=== PATIENT | male | born 1985 | race Caucasian/White ===

== ENCOUNTER 2019-11-26 09:14 | Emergency (ER) | payer OTHER, SELFPAY ==
[2019-11-26] VITALS (9 sets, daily range): BP systolic 127–162; BP diastolic 79–94; PULSE 76–102; RESP 12–28; TEMP 37.1; O2SAT 95–100; BMI 29.6
--- NOTE | 2019-11-26 09:24 | DI.CT.S_ITS ---
PROCEDURE: CT ABDOMEN PELVIS WO CON INDICATIONS: poss kidney stone, pain right groin TECHNIQUE: Noncontrast 5 mm thick sections acquired from the diaphragms to the symphysis. 5 mm thick coronal and sagittal reformats were then performed. For radiation dose reduction, the following was used: automated exposure control, adjustment of mA and/or kV according to patient size. COMPARISON: None. FINDINGS: Image quality: Diagnostic. Lung bases: Lung bases are clear. Heart size is normal. Urinary system: Both kidneys are normal in size. There is a 3 mm nonobstructing inferior right renal calculus. No additional renal calculi are appreciated bilaterally. Within the mid aspect of the right ureter, there is at least a partially obstructing moderate-sized calculus measuring 5 x 6 x 7 mm (image 54, series 2). No additional ureteral calculi are evident. There is moderate right-sided hydronephrosis and proximal hydroureter. No left-sided hydronephrosis is evident. No definite renal lesions are appreciated. Please note that evaluation of the kidneys for renal lesions is not adequate without contrast. The urinary bladder is unremarkable. No bladder calculi are identified. A few coarse calcifications of the prostate gland are incidentally noted. Other solid organs: The liver is diffusely hypodense when compared to the spleen. There likely are areas of sparing within the region of the gallbladder fossa. Small foci of increased density are evident along the dependent aspect of the gallbladder. No intrahepatic or extrahepatic biliary dilatation is appreciated. The spleen, adrenals, and pancreas appear to be within normal limits. Peritoneum and bowel: Unenhanced bowel loops demonstrate normal wall thickness and caliber. No free fluid or air. No loculated fluid collections are appreciated. The appendix is well-visualized and normal. Nodes and vessels: No retroperitoneal or mesenteric adenopathy by size criteria. Aorta and inferior vena cava are normal in caliber. Other pelvic soft tissues: No free pelvic fluid. No inguinal hernias or adenopathy. Bones: No suspicious bony lesions. No vertebral body compression fractures. IMPRESSION: 1. Moderate-sized (7 mm) at least partially obstructing mid right ureteral calculus with corresponding moderate hydronephrosis. 2. Nonobstructing small inferior right renal calculus. 3. Possible cholelithiasis. 4. Hepatic steatosis. Dictated by: Hitesh Mott M.D. on 11/26/2019 at 9:37 Approved by: Hitesh Mott M.D. on 11/26/2019 at 9:42
--- NOTE | 2019-11-26 09:48 | ED_ITS ---
HPI - Male Genitourinary General Chief complaint: Urogenital-Male Stated complaint: Kidney stones Time Seen by Provider: 11/26/19 09:39 Source: patient Mode of arrival: Ambulatory Limitations: no limitations History of Present Illness HPI Narrative: CC: Right flank pain HPI: The patient is a 34-year-old male who developed severe right flank and abdominal pain at approximately 4:00 a.m. in the morning. The pain and discomfort is 7 to 8/10 in intensity. The pain has been everything from a dull achy crampy discomfort is sharp and stabbing. He has had no fever but has had profuse sweats and chills. He denies any fall or injury. He has a past history of kidney stones which feels identical at this time. His last stone was 3 years ago. [facility] who administered Toradol and fentanyl for his pain and discomfort. The patient denies a history of asthma hypertension diabetes mellitus. The patient does not smoke cigarettes does drink alcohol socially and does use marijuana marijuana products. He he works as a director of business development. Related Data Allergies Allergy/AdvReac Type Severity Reaction Status Date / Time droperidol Allergy Unknown Verified 11/26/19 09:23 metoclopramide [From Reglan] Allergy Unknown Verified 11/26/19 09:23 prochlorperazine Allergy Unknown Verified 11/26/19 09:23 [From Compazine] Review of Systems Review of Systems Narrative: REVIEW OF SYSTEMS: CONSTITUTIONAL: The patient denies any fever but complains of chills and sweats. NEUROLOGICAL: He denies any headache abnormal behavior numbness tingling anesthesia is paresis or paralysis. EENT: He has had no sore throat or difficulty in swallowing. CARDIO-PULMONARY: He has had no chest pain cough shortness of breath. GASTROINTESTINAL: He has right-sided flank pain as previously described with out melena hematochezia. He has had nausea and vomiting. GENITAL URINARY: He has a past history of kidney stones denies any hematuria or urinary urgency or frequency. MUSCULOSKELETAL/ RHEUMATOLOGICAL: Complains of right-sided flank and back pain similar to his previous kidney stones. Patient History Medical History Kidney stone (Acute) Social History Smoking Status: Never smoker Smoking Status: Never smoker alcohol intake frequency: 0-2 drinks per day Substance Use Type: does not use Exam Narrative Exam Narrative: PHYSICAL EXAM: CONSTITUTIONAL: Awake, Alert, Oriented, Coherent, Cooperative in moderate distress. HEAD: AT/NC EENT: PERRL, FROM of eyes, no discharge. NOSE:No epistaxis or nasal drainage MOUTH: Wearing a mask. NECK: Supple, no obvious JVD, Trachea is midline without stridor, no palpable LN. THORAX: No deformity, retractions, chest wall tenderness. LUNGS: Clear, symmetrical breath sounds without respiratory distress. HEART: Normal heart tones, regular rhythm and rate without murmur. ABDOMEN: Soft, non-tender, normal bowel sounds without guarding, rebound, rigidity or palpable mass. LYMPHATIC: no palpable lymph nodes or spleen. EXTREMITIES: No edema, deformity, tenderness or cyanosis. SKIN: No rash, bruising, petechiae or purpura. NEURO: Awake, alert, oriented, conversive, cranial nerves II-XII are symmetrical , moves all 4 extremities and is ambulatory. Initial Vital Signs Initial Vital Signs: Vital Signs Temperature 98.8 F 11/26/19 09:15 Pulse Rate 86 11/26/19 09:15 Respiratory Rate 28 H 11/26/19 09:15 Blood Pressure 133/79 11/26/19 09:15 Pulse Oximetry 100 11/26/19 09:15 Course Course Course Narrative: 0956: A CT of the patient's abdomen has been ordered. The patient is being evaluated for possible kidney stone with a presentation of right flank pain. He has been administered morphine sulfate 4 mg IV push for his pain and discomfort. 1059: Noncontrast CT scan of the patient's abdomen and pelvis revealed: 1. Moderate sized open parents 7 mm close parent at least partially obstructing mid right ureteral calculus with corresponding moderate hydronephrosis. 2. Nonobstructing small inferior right renal calculus. 3. Possible cholelithiasis 4. Hepatic steatosis. Per the automatic equipment technician the patient does have gallstones. There is no gallbladder wall thickening.. 1208: The patient's pain and discomfort after to the Dilaudid is I 2 to 3/10 has not completely resolved. The patient may need a ureteral stent to relieve his pain and discomfort. We will call Dr. Amaya to discuss the patient for a possible ureteral stent. 12:39: I discussed the patient with Dr. Amaya. He is physically not avail able to see the patient until Thursday. He states that the patient will definitely have difficulty in passing a stone that size when aid it appears to be in the mid ureter with hydronephrosis.. 1243: The patient was informed that Dr. Amaya is not available. The patient is receptive to being transferred to the [facility] if necessary for stenting. The urologist on-call is from who has been paged. 1400: At this time we are waiting for the transfer center to call with an [facility] and room to transfer the patient. Earlier I discussed the options with the patient. He does not feel that he would pass the stone in is afraid to go home and that he would develop worsening pain and discomfort. He had elected to be transferred to be Urology Service. I discussed the patient with Dr. Connors, Urology, who accepted the patient being transferred to her service. Orders Ordered: ED Orders 11/26/19 09:24 CT abdomen pelvis wo con Stat 11/26/19 09:45 Basic Metabolic Panel Stat Complete Blood Count AUTO DIFF Stat 11/26/19 10:34 Urine Microscopic Stat 11/26/19 11:01 US abdomen limited Stat Discontinued Medications Hydromorphone HCl (Dilaudid) 1 mg IV NOW ONE Stop: 11/26/19 11:20 Last Admin: 11/26/19 11:28 Dose: 1 mg Documented by: AUSTIN Hydromorphone HCl (Dilaudid) 0.5 mg IV NOW ONE Stop: 11/26/19 15:15 Sodium Chloride (Normal Saline 0.9%) 1,000 mls @ 1,000 mls/hr IV BOLUS ONE Stop: 11/26/19 10:23 Last Infusion: 11/26/19 11:17 Dose: 0 mls/hr Documented by: Admin: 11/26/19 09:51 Dose: 1,000 mls/hr Documented by: AUSTIN Morphine Sulfate (Morphine) 4 mg IV NOW ONE Stop: 11/26/19 09:25 Last Admin: 11/26/19 09:49 Dose: 4 mg Documented by: AUSTIN Ondansetron HCl (Zofran) 4 mg IV NOW ONE Stop: 11/26/19 09:25 Last Admin: 11/26/19 09:49 Dose: 4 mg Documented by: AUSTIN Vital Signs Vital signs: Vital Signs - 8 hr 11/26/19 09:15 11/26/19 10:01 11/26/19 11:00 Temperature 98.8 F Pulse Rate 86 76 88 Respiratory Rate 28 H 12 Blood Pressure 133/79 Blood Pressure [Right Arm] 130/82 154/80 H Pulse Oximetry 100 100 98 11/26/19 11:31 11/26/19 12:30 11/26/19 13:30 Temperature Pulse Rate 83 89 94 H Respiratory Rate 16 Blood Pressure Blood Pressure [Right Arm] 153/85 H 146/94 H 162/93 H Pulse Oximetry 100 99 100 11/26/19 14:30 Temperature Pulse Rate 88 Respiratory Rate Blood Pressure Blood Pressure [Right Arm] 127/79 Pulse Oximetry 95 MDM - Male Genitourinary Lab Data Result diagrams: 11/26/19 09:45 11/26/19 09:45 Labs: Lab Results 11/26/19 11/26/19 11/26/19 Range/Units 09:45 09:45 10:34 WBC 11.6 H (4.5-11.0) X10^3/uL RBC 4.69 (4.5-5.9) X10^6/uL Hgb 14.4 (13.5-17.5) g/dL Hct 40.7 L (41-53) % MCV 86.7 (80-100) fL MCH 30.6 (26-34) PG MCHC 35.3 (30-36) % RDW 12.9 (11.6-14.8) % Plt Count 369 (150-400) X10^3/uL Neut % (Auto) 89.4 H (50-75) % Lymph % (Auto) 5.9 L (25-40) % Gage % (Auto) 4.5 (3-14) % Eos % (Auto) 0.0 L (2-4) % Baso % (Auto) 0.2 (0-2) % Neut # (Auto) 88919 H (1798-0280) /uL Lymph # (Auto) 700 L (1297-6171) /uL Gage # (Auto) 500 (0-900) /uL Eos # (Auto) 0 (0-450) /uL Baso # (Auto) 0 (0-100) /uL Sodium 136 L (137-145) mmol/L Potassium 3.5 (3.4-5.1) mmol/L Chloride 104 (98-107) mmol/L Carbon Dioxide 22 (22-32) mmol/L BUN 14 (9-20) mg/dL Creatinine 0.99 (0.66-1.25) mg/dL Estimated GFR > 60.0 (>60) mL/min BUN/Creatinine Ratio 14.1 (6-22) Glucose 122 H (70-100) mg/dL Calcium 9.5 (8.4-10.2) mg/dL Urine RBC 1-5/hpf (0-5/HPF) Urine WBC None seen (0-5/HPF) Ur Squamous Epith Cells 0-1 /hpf (0-5/HPF) Urine Bacteria None seen (None) Ur Culture Indicated? Cult not indicated COVID-19 PCR (Negative) 11/26/19 Range/Units 13:27 WBC (4.5-11.0) X10^3/uL RBC (4.5-5.9) X10^6/uL Hgb (13.5-17.5) g/dL Hct (41-53) % MCV (80-100) fL MCH (26-34) PG MCHC (30-36) % RDW (11.6-14.8) % Plt Count (150-400) X10^3/uL Neut % (Auto) (50-75) % Lymph % (Auto) (25-40) % Gage % (Auto) (3-14) % Eos % (Auto) (2-4) % Baso % (Auto) (0-2) % Neut # (Auto) (0871-5327) /uL Lymph # (Auto) (1336-1061) /uL Gage # (Auto) (0-900) /uL Eos # (Auto) (0-450) /uL Baso # (Auto) (0-100) /uL Sodium (137-145) mmol/L Potassium (3.4-5.1) mmol/L Chloride (98-107) mmol/L Carbon Dioxide (22-32) mmol/L BUN (9-20) mg/dL Creatinine (0.66-1.25) mg/dL Estimated GFR (>60) mL/min BUN/Creatinine Ratio (6-22) Glucose (70-100) mg/dL Calcium (8.4-10.2) mg/dL Urine RBC (0-5/HPF) Urine WBC (0-5/HPF) Ur Squamous Epith Cells (0-5/HPF) Urine Bacteria (None) Ur Culture Indicated? COVID-19 PCR Negative (Negative) Urine Dip Bedside Urine Glucose Negative Bedside Urine Bilirubin - Negative Bedside Urine Ketone ++ 40 Urine Specific Harrison 1.010 Bedside Urine Occult Blood + Bedside Urine pH 8.5 Bedside Urine Protein - Negative Bedside Urine Urobilinogen - Negative Bedside Urine Nitrite - Negative Bedside Urine Leukocytes - Negative Esterase Discharge Plan Departure Patient Disposition: [facility] Clinical Impression: Acute right flank pain, Colic, ureteral, Ureterolithiasis Cholelithiasis Qualifiers: Cholelithiasis location: gallbladder Cholecystitis presence: without cholecystitis Biliary obstruction: without biliary obstruction Qualified Code(s): K80.20 - Calculus of gallbladder without cholecystitis without o bstruction Activity Restrictions/Additional Instructions: 1. Go directly to the [facility] on [facility] 2. Go through the emergency department entrance and check in. 3. You will be a direct admission through the emergency department to the perating Room (OR). Do not eat or drink anything. 4. Someone from the OR will come to get you to take you to the operating Room. 5. You need to take a complete copy of your medical record from this visit at [facility] to the [facility] with you.
[2019-11-26] MEDS: ONDANSETRON 4 MG/2 ML INJ IV (09:49)
[2019-11-26] MEDS: MORPHINE 4 MG/ML INJ IV (09:49)
[2019-11-26] MEDS: SODIUM CHLORIDE 0.9% 1,000 ML 1000 ML IV (09:51)
[2019-11-26 09:59] LABS: Add Manual Diff / Slide Review NO; Basophils Absolute Auto 0 /uL (0-100); Basophils Percent Auto 0.2 % (0-2); Eosinophils Absolute Auto 0 /uL (0-450); Hematocrit 40.7 % (41-53); Hemoglobin 14.4 g/dL (13.5-17.5); Lymphocytes Absolute Auto 700 /uL (1100-4500); Lymphocytes Percent Auto 5.9 % (25-40); Mean Corpuscular HGB Conc 35.3 % (30-36); Mean Corpuscular Hemoglobin 30.6 PG (26-34); Mean Corpuscular Volume 86.7 fL (80-100); Monocytes Absolute Auto 500 /uL (0-900); Monocytes Percent Auto 4.5 % (3-14); Neutrophils Absolute Auto 10300 /uL (1500-7000); Neutrophils Percent Auto 89.4 % (50-75); Platelet Count 369 X10^3/uL (150-400); Red Blood Cell Count 4.69 X10^6/uL (4.5-5.9); Red Cell Distribution Width 12.9 % (11.6-14.8); White Blood Cell Count 11.6 X10^3/uL (4.5-11.0)
[2019-11-26 10:11] LABS: BUN Creatinine Ratio 14.1 (6-22); Blood Urea Nitrogen 14 mg/dL (9-20); Calcium 9.5 mg/dL (8.4-10.2); Carbon Dioxide 22 mmol/L (22-32); Chloride 104 mmol/L (98-107); Estimated Glomerular Filt Rate > 60.0 mL/min (>60); Glucose 122 mg/dL (70-100); HEMOLYSIS < 15 (0-50); Potassium 3.5 mmol/L (3.4-5.1); Sodium 136 mmol/L (137-145)
[2019-11-26 10:57] LABS: Bacteria Urine None Seen; WBC Urine None Seen (0-5/HPF)
--- NOTE | 2019-11-26 11:01 | DI.US.S_ITS ---
PROCEDURE: US ABDOMEN LIMITED INDICATIONS: ABNORMAL GALLBLADDER ON CT TECHNIQUE: Real-time focused scanning was performed of the abdomen, with image documentation. COMPARISON: [facility], CT, CT ABDOMEN PELVIS WO CON, 11/26/2019, 9:32. FINDINGS: The liver appears to be normal in size and demonstrates moderately increased echogenicity when compared to the right kidney. This does result in difficulty evaluating the liver for deep liver lesions. Hypocholic areas of parenchymal echogenicity are evident within the region of the gallbladder fossa, correlating with the appearance on the conventional CT. No intrahepatic or extrahepatic biliary dilatation is appreciated. The common bile duct measures approximately 5-6 mm in diameter. The gallbladder is normal in size. Several small mobile gallstones are evident within the dependent aspect of the gallbladder. No gallbladder wall inflammation or pericholecystic fluid is evident. The patient did not exhibit a positive sonographic Bermudez sign. The imaged portions of the pancreas appear to be within normal limits. No hydronephrosis of the right kidney is appreciated. IMPRESSION: 1. Cholelithiasis without evidence of acute cholecystitis. 2. Hepatic steatosis. Dictated by: Hitesh Mott M.D. on 11/26/2019 at 11:25 Approved by: Hitesh Mott M.D. on 11/26/2019 at 11:27
[2019-11-26 11:09] LABS: Culture Indicated Urine Cult Not Indicated; RBC Urine 1-5/HPF (0-5/HPF); Squamous Epithelial Cell Urine 0-1 /HPF (0-5/HPF)
[2019-11-26] MEDS: HYDROMORPHONE 1 MG INJ IV (11:28)
[2019-11-26 14:37] LABS: COVID19 -Nasal RAPID Negative (Negative)
[2019-11-26] MEDS: HYDROMORPHONE 0.5 MG INJ IV (15:27)
--- NOTE | 2019-11-26 15:51 | PC.NURSE ---
report was attempted at 1552. Surgery at in [place] did not answer.
--- NOTE | 2019-11-26 16:09 | PC.NURSE ---
patient was alert and ambulatory at time of discharge. He was not in acute distress. He left the department with his significant other and was to be driven down to [facility] in [place], [place]. He did not report significant pain and said that he felt his pain was manageable.
--- NOTE | 2019-11-26 16:37 | PC.NURSE ---
Mary from [facility] called and wanted to know when the patient will be arriving so that they can call the surgery crew in for their case. Mary said that If I do not hear from the surgery crew by 7 pm that I should call them her back at [phone]
--- NOTE | 2019-11-26 18:10 | PC.NURSE ---
Patient report has been called again and was not able to get through to anybody.
== END 2019-11-26 16:08 | disposition short-term general hospital (02) ==
PROVIDERS: Emergency Provider Emergency Medicine
DX: K80.20 Calculus of gallbladder without cholecystitis without obstruction (principal); N23 Unspecified renal colic; N20.1 Calculus of ureter; Z87.442 Personal history of urinary calculi; R11.2 Nausea with vomiting, unspecified
CPT/HCPCS: 36415; 74176; 76705; 80048; 81003; 81015; 85025; 87635; 96361; 96374; 96375; 96376; 99284; J1170; J2270; J2405